=== PATIENT | female | born 1945 | race Caucasian/White ===

== ENCOUNTER 2016-12-05 15:58 | Observation (INO) | payer MEDICARE ==
[~2016-12-05] VITALS: Ht 165.1 cm; Wt 66.0 kg
[2016-12-05 17:57] LABS: BASO % 1 % (0-3); EOS % 1 % (0-3); HEMATOCRIT 41.5 % (36.0-47.0); LYMPH # 3.8 x10^3/uL (1.0-4.8); LYMPH % 44 % (24-48); MEAN CORPUSCULAR HEMOGLOBIN 30 pg (25-35); MEAN CORPUSCULAR HGB CONC 34 g/dL (31-37); MEAN CORPUSCULAR VOLUME 89 fL (79-100); MONO % 8 % (0-9); NEUT % 46 % (31-73); PLATELET COUNT 250 x10^3/uL (140-400); RED BLOOD COUNT 4.68 x10^6/uL (3.50-5.40); RED CELL DISTRIBUTION WIDTH 14.5 % (11.5-14.5); WHITE BLOOD COUNT 8.6 x10^3/uL (4.0-11.0)
[2016-12-05 18:15] LABS: CALCIUM 9.4 mg/dL (8.5-10.1); CREATININE 0.9 mg/dL (0.6-1.0); GFR 62.1; POTASSIUM 3.9 mmol/L (3.5-5.1)
[2016-12-05 18:21] LABS: ALBUMIN 4.1 g/dL (3.4-5.0); ALBUMIN/GLOBULIN RATIO 1.1 (1.0-1.7); TOTAL BILIRUBIN 0.3 mg/dL (0.2-1.0); TOTAL PROTEIN 7.7 g/dL (6.4-8.2)
[2016-12-05] MEDS ORDERED: ASPIRIN 81 MG TAB.CHEW PO ONE ×2 (18:30→19:45)
[2016-12-05] MEDS ORDERED: ONDANSETRON PF 4 MG/2 ML VIAL. IV PRN (19:15)
[2016-12-05] MEDS ORDERED: NITROGLYCERIN SUBLINGUAL 0.4 MG BOTTLE OF 25. SL PRN (19:15)
[2016-12-05] MEDS ORDERED: MORPHINE SULFATE 4 MG/ML DISP.SYRIN. IV PRN (19:15)
--- NOTE | 2016-12-05 19:47 | PHYS DOC ---
Past Medical History Past Medical History: Depression, High Cholesterol, Hypertension, Hyperthyroid Past Surgical History: No Surgical History Alcohol Use: Rarely Drug Use: None Adult General Chief Complaint Chief Complaint: CHEST PAIN HPI HPI 70-year-old female with a history of hypertension but no history of coronary disease presents with about a 6 hour history of waxing and waning left-sided chest tightness. She also states she had some shortness of breath and a little bit of nausea. She states currently the pain is minimal. She denies any fever chills or sweats. She denies cough congestion or hemoptysis. She denies any unilateral lower extremity swelling. She denies any trauma to her chest. [] Review of Systems Review of Systems Constitutional: Denies fever or chills [] Eyes: Denies change in visual acuity, redness, or eye pain [] HENT: Denies nasal congestion or sore throat [] Respiratory: Denies cough or shortness of breath [] Cardiovascular: No additional information not addressed in HPI [] GI: Denies abdominal pain, nausea, vomiting, bloody stools or diarrhea [] : Denies dysuria or hematuria [] Musculoskeletal: Denies back pain or joint pain [] Integument: Denies rash or skin lesions [] Neurologic: Denies headache, focal weakness or sensory changes [] Endocrine: Denies polyuria or polydipsia [] Current Medications Current Medications Current Medications Medications (Trade) Dose Ordered Sig/[facility] Start Time Stop Time Status Last Admin Dose Admin Aspirin (Children'S Aspirin) 324 mg 1X ONCE 12/05/16 19:45 12/05/16 19:46 Morphine Sulfate 4 mg PRN Q2HR PRN 12/05/16 19:15 12/06/16 19:14 Nitroglycerin (Nitrostat) 0.4 mg PRN Q5MIN PRN 12/05/16 19:15 12/06/16 19:14 Ondansetron HCl (Zofran) 4 mg PRN Q8HRS PRN 12/05/16 19:15 12/06/16 19:14 Allergies Allergies Allergies Coded Allergies Type Severity Reaction Last Updated Verified Penicillins Allergy Intermediate Rash 12/05/16 Yes Physical Exam Physical Exam Constitutional: Well developed, well nourished, no acute distress, non-toxic appearance. [] HENT: Normocephalic, atraumatic, bilateral external ears normal, oropharynx moist, no oral exudates, nose normal. [] Eyes: PERRLA, EOMI, conjunctiva normal, no discharge. [] Neck: Normal range of motion, no tenderness, supple, no stridor. [] Cardiovascular:Heart rate regular rhythm, no murmur [] Lungs & Thorax: Bilateral breath sounds clear to auscultation [] Abdomen: Bowel sounds normal, soft, no tenderness, no masses, no pulsatile masses. [] Skin: Warm, dry, no erythema, no rash. [] Back: No tenderness, no CVA tenderness. [] Extremities: No tenderness, no cyanosis, no clubbing, ROM intact, no edema. [] Neurologic: Alert and oriented X 3, normal motor function, normal sensory function, no focal deficits noted. [] Psychologic: Affect normal, judgement normal, mood normal. [] Current Patient Data Vital Signs Vital Signs Date Time Temp Pulse Resp B/P Pulse Ox O2 Delivery O2 Flow Rate FiO2 12/05/16 16:10 98.2 77 16 204/87 96 Room Air 98.2 Lab Values Laboratory Tests Test 12/05/16 16:15 White Blood Count 8.6x10^3/uL (4.0-11.0) Red Blood Count 4.68x10^6/uL (3.50-5.40) Hemoglobin 14.0g/dL (12.0-15.5) Hematocrit 41.5% (36.0-47.0) Mean Corpuscular Volume 89fL (79-100) Mean Corpuscular Hemoglobin 30pg (25-35) Mean Corpuscular Hemoglobin Concent 34g/dL (31-37) Red Cell Distribution Width 14.5% (11.5-14.5) Platelet Count 250x10^3/uL (140-400) Neutrophils (%) (Auto) 46% (31-73) Lymphocytes (%) (Auto) 44% (24-48) Monocytes (%) (Auto) 8% (0-9) Eosinophils (%) (Auto) 1% (0-3) Basophils (%) (Auto) 1% (0-3) Neutrophils # (Auto) 4.0x10^3uL (1.8-7.7) Lymphocytes # (Auto) 3.8x10^3/uL (1.0-4.8) Monocytes # (Auto) 0.6x10^3/uL (0.0-1.1) Eosinophils # (Auto) 0.1x10^3/uL (0.0-0.7) Basophils # (Auto) 0.0x10^3/uL (0.0-0.2) Sodium Level 144mmol/L (136-145) Potassium Level 3.9mmol/L (3.5-5.1) Chloride Level 103mmol/L (98-107) Carbon Dioxide Level 30mmol/L (21-32) Anion Gap 11 (6-14) Blood Urea Nitrogen 16mg/dL (7-20) Creatinine 0.9mg/dL (0.6-1.0) Estimated GFR (Cockcroft-Gault) 62.1 BUN/Creatinine Ratio 18 (6-20) Glucose Level 88mg/dL (70-99) Calcium Level 9.4mg/dL (8.5-10.1) Total Bilirubin 0.3mg/dL (0.2-1.0) Aspartate Amino Transferase (AST) 24U/L (15-37) Alanine Aminotransferase (ALT) 27U/L (14-59) Alkaline Phosphatase 50U/L (46-116) Troponin I Quantitative < 0.017ng/mL (0.000-0.055) UA-Ehq-Y-Type Natriuretic Peptide 99pg/mL (0-124) Total Protein 7.7g/dL (6.4-8.2) Albumin 4.1g/dL (3.4-5.0) Albumin/Globulin Ratio 1.1 (1.0-1.7) Laboratory Tests 12/05/16 16:15 Laboratory Tests 12/05/16 16:15 EKG EKG [EKG: Normal sinus rhythm incomplete right bundle-branch block no obvious ischemic ST-T changes] Radiology/Procedures Radiology/Procedures [] Impressions: Chest x-ray: Negative exam as interpreted by me Course & Med Decision Making Course & Med Decision Making Pertinent Labs and Imaging studies reviewed. (See chart for details) [ED course: Evaluation reveals 70-year-old female with concerning chest pain type symptoms. Initial workup was unremarkable including negative troponin chest x-ray and EKG. Patient's symptoms were concerning enough that I felt she would best be monitored as inpatient. I spoke with Dr. White who agreed to accept patient for admission.] Dragon Disclaimer Dragon Disclaimer This electronic medical record was generated, in whole or in part, using a voice recognition dictation system. Departure Departure Impression: Primary Impression: Chest pain Disposition: 09 ADMITTED INPATIENT Admitting Physician: London White Condition: STABLE Referrals: CHUCK COYLE MD (PCP) Problem Qualifiers Primary Impression: Chest pain Chest pain type: unspecified Qualified Code: R07.9 - Chest pain, unspecified BEVERLEY SAUL DO Dec 05, 2016 19:47
[2016-12-05 21:00] VITALS: BP 159/93
[2016-12-05 23:00] VITALS: BP 151/83
[2016-12-05] MEDS ORDERED: OMEP40CA5 PO (23:02)
[2016-12-05] MEDS ORDERED: LACT1CAP29 PO (23:05)
[2016-12-05] MEDS ORDERED: CALC600T4 PO (23:05)
[2016-12-05] MEDS ORDERED: LOSA25TA4 PO (23:05)
[2016-12-05] MEDS ORDERED: FLAX1CAP7 PO (23:05)
--- NOTE | 2016-12-06 02:10 | ACF ---
Admission Forms Criteria CHEST PAIN Clinical Indications for Admission to Inpatient Care (Place 'X' for any and all applicable criteria): Admission is indicated for chest pain and ANY ONE of the following(1)(2)(3)(4)(5 ): [ ]I. Angina with acute coronary syndrome (Also use Myocardial Infarction or Angina guideline) [ ]II. Hemodynamic instability [ ]III. Angina needing acute intervention as indicated by ALL of the following( 11)(12): [ ]a) Unstable angina is present as indicated by angina that is ANY ONE of the following: [ ]i) New onset [ ]ii) Nocturnal [ ]iii) Prolonged at rest [ ]iv) Progressive [ ]b) Angina warrants acute intervention as indicated by ANY ONE of the following: [ ]i) Recurrent angina (e.g, not responding as previously to treatment) [ ]ii) Angina at rest or with low-level activities despite initial medical therapy [ ]iii) New or presumably new ST-segment depression on ECG [ ]iv) Signs or symptoms of heart failure (eg, dyspnea, pulmonary edema) [ ]v) New or worsening mitral regurgitation [ ]vi) Hemodynamic instability [ ]vii) Dangerous arrhythmia (eg, sustained ventricular tachycardia) [ ]viii) History of percutaneous coronary intervention within 6 months [ ]ix) History of coronary artery bypass graft surgery [ ]x) JENNIFER risk score of 2 or greater[A] [ ]xi) History of Diabetes(14) [ ]xii) High-risk cardiac ischemia findings on noninvasive testing (e.g, echocardiogram, treadmill testing, nuclear scan) [ ]xiii) Chronic renal insufficiency (ie, estimated GFR less than 60 mL/min/1.732m) [ ]xiv) Left ventricular ejection fraction less than 40% [ ]IV. Evidence of CO (eg, cardiac biomarkers positive, ST-segment elevation on ECG) also use Myocardial Infarction Criteria Form. [ ]V. Pulmonary edema [ ]. Respiratory distress [ ]VII. Chest pain indicative of serious diagnosis other than coronary artery disease (eg, aortic dissection) [ ]VIII. Contraindications and/or Inappropriate clinical situations for Observational Care in patients with Chest Pain, when ANY ONE of the following is required: [ ]a) Patient with risk factor for pulmonary embolism, acute coronary syndrome and myocardial infarction (18) [ ]b) Patient with Pulmonary embolism require an average LOS of 4.3 days, therefore emergency department observation management is inappropriate 18,23 [ ]c) Painful condition/s in the elderly, have the highest rate of recidivism after emergency department observation management (10.8%) 20,21,22 [ ]d) Elevated cardiac biomarker requires intensive and exhaustive care (19) [X]IX. General contraindications and/or Inappropriate clinical situations for Observational Care in patients with Chest Pain, when ANY ONE of the following is required: [X]a) Prediction of prolongation of LOS based on ANY ONE of the following may be considered as a contraindication for observational care 2, 3, 4, 5, 6, 7, 8, 9, 10, 11 [X]i) Age > 65 yrs. [ ]ii) Patient arriving by ambulance [ ]iii) Patient with high acuity [ ]iv) Patient requiring vital sign monitoring [ ]v) Patient on IV medication [X]b) Systolic blood pressures 180mmHg 3,12 [ ]c) Patient with altered mental status including delirium and other alteration of consciousness, (3) [ ]d) Patient whose discharge disposition will be to a half-way home or rehabilitation home should not be managed in Emergency Department Observation Unit. CMS rule requires 3 days hospital stay before such placement. 3,13 [ ]e) Patient with failure to thrive due to broad array of etiologies 3,16,17 [ ]f) Inability to ambulate 3,14 Extended stay beyond goal length of stay may be needed for (1)(28): [ ]a) Specific condition diagnosed after evaluation (eg, pulmonary embolism, aortic dissection) [ ]b) Unstable angina [ ]c) Continued suspicion of acute coronary syndrome with inability to complete needed cardiac evaluation (eg, patient clinically unable to undergo stress testing) [ ]d) Myocardial infarction (Contents from ANGINA and CHEST PAIN clinical indications for admission to inpatient care have been integrated in this form) The original [facility] content created by [employer] has been revised. The portions of the content which have been revised are identified through the use of italic text or in bold, and [facility] has neither reviewed nor approved the modified material. All other unmodified content is copyright [facility]. Please see references footnoted in the original [facility] [employer] edition 2016 Admission Criteria Met?: Yes BK COX Dec 06, 2016 02:10
[2016-12-06 03:00] VITALS: BP 129/64
--- NOTE | 2016-12-06 06:09 | EKG ---
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
[2016-12-06 07:00] VITALS: BP 130/62
--- NOTE | 2016-12-06 08:56 | RAD ---
Portable chest, 12/05/2016: History: Chest pain The heart size and pulmonary vascularity are normal. There is mild tortuosity of the thoracic aorta. No pulmonary infiltrates are seen. There is no evidence of pleural fluid. IMPRESSION: No acute cardiopulmonary abnormality is detected.
--- NOTE | 2016-12-06 10:19 | PDOC2 ---
CARDIAC CONSULT DATE OF CONSULT Date of Consult DATE: 12/06/16 TIME: 10:07 REASON FOR CONSULT Reason for Consult: Chest pain REFERRING PHYSICIAN Referring Physician: Cathy SOURCE Source: Chart review, Patient HISTORY OF PRESENT ILLNESS HISTORY OF PRESENT ILLNESS This is a pleasant 70 yo female admitted for complains of chest pain. Reports that yesterday about 1030 she started having nonradiating left chest pressure which stayed constant throughout the day 5-6 in 0-10 pain scale. There has been no associated symptoms of nausea, PALACIOS, SOA, palpitations, dizziness, or decrease in activity tolerance. She did however has done significant modification in her routine medications due main complain of cough which actually was relieved 2-3 months after removing thyroid replacement pill, statin and ASA. Denies any recent injury, falls, VTE, CAD, excessive lifting or overhead reaching, neck or shoulder discomfort. She is significant for GERD but has been taking PPI for a while and has not been complaining of any significant heartburn except for her previous cough which was nonproductive. PAST MEDICAL HISTORY Cardiovascular: HTN, Hyperlipidemia Pulmonary: No pertinent hx CENTRAL NERVOUS SYSTEM: Other (No pertinent history) GI: GERD Heme/Onc: No pertinent hx Hepatobiliary: No pertinent hx Psych: No pertinent hx Musculoskeletal: Osteoarthritis Rheumatologic: No pertinent hx Infectious disease: No pertinent hx ENT: Sincusitis, Allergic Rhinitis Renal/: No pertinent hx Endocrine: Hypothyroidism, Osteoporosis Dermatology: No pertinent hx PAST SURGICAL HISTORY Past Surgical History: Hysterectomy, Other (bladder sling; sinus surgery in 2012) FAMILY HISTORY Family History: Coronary Artery Disease (father) SOCIAL HISTORY Smoke: No (quit remotely) ALCOHOL: occassional Drugs: None Lives: Alone CURRENT MEDICATIONS CURRENT MEDICATIONS Current Medications Medications (Trade) Dose Ordered Sig/Robin Route PRN Reason Start Time Stop Time Status Last Admin Dose Admin Aspirin (Children'S Aspirin) 324 mg 1X ONCE PO 12/05/16 18:30 12/05/16 18:31 DC 12/05/16 18:42 ALLERGIES ALLERGIES: Coded Allergies: Penicillins (Verified Allergy, Intermediate, Rash, 12/05/16) ROS Review of System 14 point ROS evaluated with pertinent positives noted per HPI PHYSICAL EXAM General: Alert, Oriented X3, Cooperative, No acute distress HEENT: Atraumatic, Mucous membr. moist/pink Lungs: Clear to auscultation, Normal air movement Heart: Regular rate, Normal S1, Normal S2, Other (2/6 systolic murmur to LLS border) Abdomen: Soft, No tenderness Extremities: No cyanosis, No edema Skin: No breakdown, No significant lesion Neuro: Normal speech, Sensation intact Psych/Mental Status: Mental status NL, Mood NL MUSCULOSKELETAL: Osteoarthritic changes both hands VITALS VITALS Vital Signs Date Time Temp Pulse Resp B/P Pulse Ox O2 Delivery O2 Flow Rate FiO2 12/06/16 08:00 Room Air 12/06/16 07:00 97.7 57 18 130/62 96 97.7 LABS Lab: Laboratory Tests Test 12/05/16 16:15 12/06/16 00:35 12/06/16 07:00 White Blood Count 8.6x10^3/uL (4.0-11.0) Red Blood Count 4.68x10^6/uL (3.50-5.40) Hemoglobin 14.0g/dL (12.0-15.5) Hematocrit 41.5% (36.0-47.0) Mean Corpuscular Volume 89fL (79-100) Mean Corpuscular Hemoglobin 30pg (25-35) Mean Corpuscular Hemoglobin Concent 34g/dL (31-37) Red Cell Distribution Width 14.5% (11.5-14.5) Platelet Count 250x10^3/uL (140-400) Neutrophils (%) (Auto) 46% (31-73) Lymphocytes (%) (Auto) 44% (24-48) Monocytes (%) (Auto) 8% (0-9) Eosinophils (%) (Auto) 1% (0-3) Basophils (%) (Auto) 1% (0-3) Neutrophils # (Auto) 4.0x10^3uL (1.8-7.7) Lymphocytes # (Auto) 3.8x10^3/uL (1.0-4.8) Monocytes # (Auto) 0.6x10^3/uL (0.0-1.1) Eosinophils # (Auto) 0.1x10^3/uL (0.0-0.7) Basophils # (Auto) 0.0x10^3/uL (0.0-0.2) Sodium Level 144mmol/L (136-145) Potassium Level 3.9mmol/L (3.5-5.1) Chloride Level 103mmol/L (98-107) Carbon Dioxide Level 30mmol/L (21-32) Anion Gap 11 (6-14) Blood Urea Nitrogen 16mg/dL (7-20) Creatinine 0.9mg/dL (0.6-1.0) Estimated GFR (Cockcroft-Gault) 62.1 BUN/Creatinine Ratio 18 (6-20) Glucose Level 88mg/dL (70-99) Calcium Level 9.4mg/dL (8.5-10.1) Total Bilirubin 0.3mg/dL (0.2-1.0) Aspartate Amino Transf (AST/SGOT) 24U/L (15-37) Alanine Aminotransferase (ALT/SGPT) 27U/L (14-59) Alkaline Phosphatase 50U/L (46-116) Troponin I Quantitative < 0.017ng/mL (0.000-0.055) < 0.017ng/mL (0.000-0.055) < 0.017ng/mL (0.000-0.055) DW-Sex-F-Type Natriuretic Peptide 99pg/mL (0-124) Total Protein 7.7g/dL (6.4-8.2) Albumin 4.1g/dL (3.4-5.0) Albumin/Globulin Ratio 1.1 (1.0-1.7) ASSESSMENT/PLAN ASSESSMENT/PLAN 1. Chest pain: sustained left chest pressure with significant cardiac risk factors 2. HLP: stopped statin 2-3 months ago due to cough 3. HTN: controlled, takes home losartan 4. Hypothyroidism: stopped replacement 2-3 months ago due to cough as well as stopped ASA 5. Hx of sinus surgery/GERD Recommendations 1. TTE, MPI today 2. TSH, lipid panel. 3. Would recommend starting ECASA 81 mg for primary prevention and monitor for cough reproduction. 4. Continue with PPI 5. Continue with home losartan Problems: LAKESHIA DUBON APRN Dec 06, 2016 10:19
[2016-12-06 10:23] LABS: CHOLESTEROL/HDL RATIO 4.1
[2016-12-06 11:00] VITALS: BP 146/64
[2016-12-06] MEDS ORDERED: LOSARTAN POTASSIUM 25 MG TABLET. PO SCH (11:00)
[2016-12-06] MEDS ORDERED: REGADENOSON 0.4 MG/5 ML DISP.SYRIN. IV ONE (11:00)
[2016-12-06] MEDS ORDERED: PANTOPRAZOLE 40 MG TABLET. PO SCH (11:00)
[2016-12-06] MEDS ORDERED: ASPIRIN ENTERIC COATED 81 MG TABLET.DR. PO SCH (11:00)
[2016-12-06] MEDS ORDERED: ACETAMINOPHEN 325 MG TABLET. PO PRN (12:15)
[2016-12-06] MEDS ORDERED: hydrALAZINE 20 MG/ML VIAL. IVP PRN (12:15)
[2016-12-06] MEDS ORDERED: ALBUTEROL SULFATE 2.5 MG/3 ML NEBU. NEB PRN ×2 (12:15→16:15)
[2016-12-06] MEDS ORDERED: HYDROCODONE/APAP 5/325MG TABLET. PO PRN (12:15)
[2016-12-06] MEDS ORDERED: ONDANSETRON PF 4 MG/2 ML VIAL. IV PRN (12:15)
[2016-12-06] MEDS ORDERED: LACTOBACILLUS ACIDOPH & BULGAR 1 TABLET. PO SCH (13:00)
[2016-12-06] MEDS ORDERED: CALCIUM CARBONATE 500 MG TABLET PO SCH (13:00)
--- NOTE | 2016-12-06 14:43 | RAD ---
APPROVED REPORT Test Type: Pharmacological Stress Nurse/Tech: ALEXANDRIA Salas RN Test Indications: Chest pain Cardiac History: HTN, high cholesterol see EHR Medications: see EHR Medical History: see EHR Resting ECG: SR Resting Heart Rate: 71 bpm Resting Blood Pressure: 151/82mmHg Pretest Chest Pain: Atypical angina Nurse/Tech Notes Reports resting mid back pain. Lungs CTA, heart tones WNL Consent: The procedure was explained to the patient in lay terms. Informed consent was witnessed. Edgar eout was entered into [employer] History and Stress Test performed by RT Avinash (R) (N) Pharm. Details Pharmacologic stress testing was performed using 0.4mg per 5ml of regadenoson given intravenously ove r 7-10 seconds. Stress Symptoms Dyspnea, no change in back pain POST EXERCISE Reason for Termination: Infusion complete Max Blood Pressure: 167/77mmHg Chest Pain: Yes. Arrhythmia: No. INTERPRETATION Stress EKG Conclusion: The resting EKG shows a sinus rhythm with inferior and lateral ST depression. Stress EKG shows mild further depression in the abnormal leads. Baseline abnormal EKG with further mild changes with exertion that are suggestive but not diagnostic of ischemia. Imaging Protocol IMAGE PROTOCOL: Rest Tc-99m/stress Tc-99m 1 day Rest: Stress: Viability: Radiopharm.Tc99m [id number] Sestamibi Dose10.5mCi 33.5mCi Duration 15min. 10min. Img Date 12/06/2016 12/06/2016 Inj-Img [id number]. 60min. Rest Admin Site:IV - Right AntecubitalAdministrator:RT Avinash (R)(N) Stress Admin Site: IV - Right AntecubitalAdministrator: RT Katja (R)(N) STRESS DATA End Diast. Vol.64.0mlAv. Heart Rate66.0bpm End Syst. Vol.16.0mlCO Index BSA0.0L/min Myocardial Tbfz291.0gEject. Jqisaoms39.0% Stress Rates Pk. Fill Rate3.06EDV/secLVtime Pk. Fill 273.77msec Pk. Empty Rate4.59ESV/secLVtime Pk. Fnlkd547.45msec 1/3 Pk. Fill1.12EDV/sec Stress Scores Regional WT0.00Summed WT2.00 Regional WM0.00Summed WM1.00 LV Perfusion The stress scans showed no significant defects. The rest scans showed no significant defects. Nuclear imaging shows no reversible ischemia or infarct. Wall Motion Normal left ventricular systolic function with an ejection fraction of greater than 70%. LV Perf. Quant 17 Seg. SSS0.00 17 Seg. SRS0.00 17 Seg. SDS0.00 Stress Defect Extent (% LAD)0.00Rest Defect Extent (% LAD)0.00Rev. Defect Extent (% LAD)0.00 Stress Defect Extent (% LCX) 0.00Rest Defect Extent (% LCX)0.00Rev. Defect Extent (% LCX)0.00 Stress Defect Extent (% RCA)0.00Rest Defect Extent (% RCA)0.00Rev. Defect Extent (% RCA)0.00 Stress Defect Extent (% LILA)0.00Rest Defect Extent (% LILA)0.00Rev. Defect Extent (% LILA)0.00 Conclusion 1. Abnormal baseline EKG with further mild changes with exertion that are suggestive but not diagnost ic of ischemia. 2. Nuclear imaging shows no reversible ischemia or infarct. 3. Normal left ventricular systolic function with an ejection fraction of greater than 70%. 4. Low to moderately low risk Lexiscan nuclear stress test.
--- NOTE | 2016-12-06 14:46 | PDOC1 ---
History and Physical Past Medical History Cardiovascular: HTN, Hyperlipidemia Pulmonary: No pertinent hx CENTRAL NERVOUS SYSTEM: Other (No pertinent history) GI: GERD Heme/Onc: No pertinent hx Hepatobiliary: No pertinent hx Psych: No pertinent hx Rheumatologic: No pertinent hx Infectious disease: No pertinent hx ENT: Sincusitis, Allergic Rhinitis Renal/: No pertinent hx Endocrine: Hypothyroidism, Osteoporosis Dermatology: No pertinent hx Past Surgical History Past Surgical History: Hysterectomy, Other (bladder sling; sinus surgery in 2012) Family History Family History: Coronary Artery Disease (father) Social History Smoke: No (quit remotely) ALCOHOL: occassional Drugs: None Current Problem List Problem List Problems Medical Problems: (1) Chest pain Status: Acute Current Medications Current Medications Current Medications Medications (Trade) Dose Ordered Sig/Robin Start Time Stop Time Status Last Admin Dose Admin Acetaminophen (Tylenol) 325 mg PRN Q6HRS PRN 12/06/16 12:15 Acetaminophen/ Hydrocodone Bitart (Lortab 5/325) 1 tab PRN Q6HRS PRN 12/06/16 12:15 Albuterol Sulfate (Ventolin Neb Soln) 2.5 mg PRN Q4HRS PRN 12/06/16 12:15 Aspirin (Children'S Aspirin) 324 mg 1X ONCE 12/05/16 19:45 12/05/16 19:46 DC Aspirin (Ecotrin) 81 mg DAILYWBKFT 12/06/16 11:00 12/06/16 11:44 81 MG Atorvastatin Calcium (Lipitor) 20 mg QHS 12/06/16 21:00 Calcium Carbonate/ Glycine (Oscal) 500 mg BID 12/06/16 13:00 Hydralazine HCl (Apresoline) 10 mg PRN Q4HRS PRN 12/06/16 12:15 Lactobacillus Acidophilus (Bacid, Stephanie-Bid) 1 tab DAILY 12/06/16 13:00 Losartan Potassium (Cozaar) 25 mg DAILY 12/06/16 11:00 12/06/16 11:44 25 MG Morphine Sulfate 4 mg PRN Q2HR PRN 12/05/16 19:15 12/06/16 19:14 Nitroglycerin (Nitrostat) 0.4 mg PRN Q5MIN PRN 12/05/16 19:15 12/06/16 19:14 Non-Formulary Medication 1 each HS 12/06/16 21:00 UNV Ondansetron HCl (Zofran) 4 mg PRN Q8HRS PRN 12/06/16 12:15 Pantoprazole Sodium (Protonix) 40 mg DAILYAC 12/06/16 11:00 12/06/16 11:43 40 MG Regadenoson (Lexiscan) 0.4 mg 1X ONCE 12/06/16 11:00 12/06/16 11:01 DC 12/06/16 11:00 0.4 MG Allergies Allergies Allergies Coded Allergies Type Severity Reaction Last Updated Verified Penicillins Allergy Intermediate Rash 12/05/16 Yes ROS Review of System CONSTITUTIONAL: No fever or chills EYES: No recent changes SKIN: No rash or itching CARDIOVASCULAR: chest pain, no syncope, palpitations, or edema RESPIRATORY: No SOB or cough GASTROINTESTINAL: No nausea, vomiting or abdominal pain NEUROLOGICAL: No headaches or weakness ENDOCRINE: No cold or heat intolerance GENITOURINARY: No urgency or frequency of urination MUSCULOSKELETAL: No back pain or joint pain LYMPHATICS: No enlarged lymph nodes PSYCHIATRIC: No anxiety or depression Physical Exam Physical Exam GEN.: No apparent distress. Alert and oriented. HEENT: Head is normocephalic, atraumatic NECK: Supple. no jvd LUNGS: Clear to auscultation. normal airflow HEART: RRR, S1, S2 present. Peripheral pulses intact in all extremites. ABDOMEN: Soft, nontender. Positive bowel sounds. EXTREMITIES: Without any cyanosis. NEUROLOGIC: Normal speech, normal tone PSYCHIATRIC: Normal affect, normal mood. SKIN: No ulcerations Vitals Vitals Vital Signs Date Time Temp Pulse Resp B/P Pulse Ox O2 Delivery O2 Flow Rate FiO2 12/06/16 11:44 61 146/64 12/06/16 11:00 97.9 18 97 Room Air 97.9 Labs Labs Laboratory Tests Test 12/05/16 16:15 12/06/16 00:35 12/06/16 07:00 White Blood Count 8.6x10^3/uL (4.0-11.0) Red Blood Count 4.68x10^6/uL (3.50-5.40) Hemoglobin 14.0g/dL (12.0-15.5) Hematocrit 41.5% (36.0-47.0) Mean Corpuscular Volume 89fL (79-100) Mean Corpuscular Hemoglobin 30pg (25-35) Mean Corpuscular Hemoglobin Concent 34g/dL (31-37) Red Cell Distribution Width 14.5% (11.5-14.5) Platelet Count 250x10^3/uL (140-400) Neutrophils (%) (Auto) 46% (31-73) Lymphocytes (%) (Auto) 44% (24-48) Monocytes (%) (Auto) 8% (0-9) Eosinophils (%) (Auto) 1% (0-3) Basophils (%) (Auto) 1% (0-3) Neutrophils # (Auto) 4.0x10^3uL (1.8-7.7) Lymphocytes # (Auto) 3.8x10^3/uL (1.0-4.8) Monocytes # (Auto) 0.6x10^3/uL (0.0-1.1) Eosinophils # (Auto) 0.1x10^3/uL (0.0-0.7) Basophils # (Auto) 0.0x10^3/uL (0.0-0.2) Sodium Level 144mmol/L (136-145) Potassium Level 3.9mmol/L (3.5-5.1) Chloride Level 103mmol/L (98-107) Carbon Dioxide Level 30mmol/L (21-32) Anion Gap 11 (6-14) Blood Urea Nitrogen 16mg/dL (7-20) Creatinine 0.9mg/dL (0.6-1.0) Estimated GFR (Cockcroft-Gault) 62.1 BUN/Creatinine Ratio 18 (6-20) Glucose Level 88mg/dL (70-99) Calcium Level 9.4mg/dL (8.5-10.1) Total Bilirubin 0.3mg/dL (0.2-1.0) Aspartate Amino Transf (AST/SGOT) 24U/L (15-37) Alanine Aminotransferase (ALT/SGPT) 27U/L (14-59) Alkaline Phosphatase 50U/L (46-116) Troponin I Quantitative < 0.017ng/mL (0.000-0.055) < 0.017ng/mL (0.000-0.055) < 0.017ng/mL (0.000-0.055) VC-Bnl-W-Type Natriuretic Peptide 99pg/mL (0-124) Total Protein 7.7g/dL (6.4-8.2) Albumin 4.1g/dL (3.4-5.0) Albumin/Globulin Ratio 1.1 (1.0-1.7) Triglycerides Level 100mg/dL (0-150) Cholesterol Level 211mg/dL (0-200) LDL Cholesterol, Calculated 139mg/dL (0-100) VLDL Cholesterol, Calculated 20mg/dL (0-40) HDL Cholesterol 52mg/dL (40-60) Cholesterol/HDL Ratio 4.1 Thyroid Stimulating Hormone (TSH) 6.581uIU/mL (0.358-3.74) Laboratory Tests Test 12/05/16 16:15 12/06/16 00:35 12/06/16 07:00 White Blood Count 8.6x10^3/uL (4.0-11.0) Red Blood Count 4.68x10^6/uL (3.50-5.40) Hemoglobin 14.0g/dL (12.0-15.5) Hematocrit 41.5% (36.0-47.0) Mean Corpuscular Volume 89fL (79-100) Mean Corpuscular Hemoglobin 30pg (25-35) Mean Corpuscular Hemoglobin Concent 34g/dL (31-37) Red Cell Distribution Width 14.5% (11.5-14.5) Platelet Count 250x10^3/uL (140-400) Neutrophils (%) (Auto) 46% (31-73) Lymphocytes (%) (Auto) 44% (24-48) Monocytes (%) (Auto) 8% (0-9) Eosinophils (%) (Auto) 1% (0-3) Basophils (%) (Auto) 1% (0-3) Neutrophils # (Auto) 4.0x10^3uL (1.8-7.7) Lymphocytes # (Auto) 3.8x10^3/uL (1.0-4.8) Monocytes # (Auto) 0.6x10^3/uL (0.0-1.1) Eosinophils # (Auto) 0.1x10^3/uL (0.0-0.7) Basophils # (Auto) 0.0x10^3/uL (0.0-0.2) Sodium Level 144mmol/L (136-145) Potassium Level 3.9mmol/L (3.5-5.1) Chloride Level 103mmol/L (98-107) Carbon Dioxide Level 30mmol/L (21-32) Anion Gap 11 (6-14) Blood Urea Nitrogen 16mg/dL (7-20) Creatinine 0.9mg/dL (0.6-1.0) Estimated GFR (Cockcroft-Gault) 62.1 BUN/Creatinine Ratio 18 (6-20) Glucose Level 88mg/dL (70-99) Calcium Level 9.4mg/dL (8.5-10.1) Total Bilirubin 0.3mg/dL (0.2-1.0) Aspartate Amino Transf (AST/SGOT) 24U/L (15-37) Alanine Aminotransferase (ALT/SGPT) 27U/L (14-59) Alkaline Phosphatase 50U/L (46-116) Troponin I Quantitative < 0.017ng/mL (0.000-0.055) < 0.017ng/mL (0.000-0.055) < 0.017ng/mL (0.000-0.055) WN-Lum-V-Type Natriuretic Peptide 99pg/mL (0-124) Total Protein 7.7g/dL (6.4-8.2) Albumin 4.1g/dL (3.4-5.0) Albumin/Globulin Ratio 1.1 (1.0-1.7) Triglycerides Level 100mg/dL (0-150) Cholesterol Level 211mg/dL (0-200) LDL Cholesterol, Calculated 139mg/dL (0-100) VLDL Cholesterol, Calculated 20mg/dL (0-40) HDL Cholesterol 52mg/dL (40-60) Cholesterol/HDL Ratio 4.1 Thyroid Stimulating Hormone (TSH) 6.581uIU/mL (0.358-3.74) VTE Prophylaxis Ordered VTE Prophylaxis Devices: Yes VTE Pharmacological Prophylaxi: No JOANNE DELCID MD Dec 06, 2016 14:46
[2016-12-06 15:00] VITALS: BP 130/65
[2016-12-06] MEDS ORDERED: IOHEXOL 350 MG/ML 100ML VIAL. IV ONE (16:00)
[2016-12-06] MEDS ORDERED: CONTRAST GIVEN MC PRN (16:15)
[2016-12-06 16:42] VITALS: BP_SYST 126; BP_SYST 139; BP_DIAS 69; BP_DIAS 78
--- NOTE | 2016-12-06 16:45 | CARD ---
APPROVED REPORT EXAM: Two-dimensional and M-mode echocardiogram with Doppler and color Doppler. Other Information Quality : AverageHR: 74bpm Rhythm : NSR INDICATION Chest Pain 2D DIMENSIONS RVDd3.2 (2.9-3.5cm)Left Atrium(2D)2.4 (1.6-4.0cm) IVSd1.0 (0.7-1.1cm)Aortic Root(2D)2.8 (2.0-3.7cm) LVDd3.8 (3.9-5.9cm)LVOT Diameter2.0 (1.8-2.4cm) PWd0.9 (0.7-1.1cm)LVDs2.6 (2.5-4.0cm) FS (%) 31.7 %SV36.5 ml LVEF(%)60.4 (>50%) Aortic Valve AoV Peak Rubin.123.0cm/sAoV VTI22.8cm AO Peak GR.6.1mmHgLVOT Peak Rubin.114.0cm/s LVOT VTI 22.64cmAO Mean GR.3mmHg OFELIA (VMAX)2.69cq5OSL (VTI)3.11cm2 Mitral Valve MV E Skyoxric47.7cm/sMV DECEL ZHLA540ys MV A Fukhprue06.7cm/sMV E Mean Gr.1mmHg MV PJL24dsL/A Ratio0.9 MV A Vwfulmty715laFLE (PHT)2.62cm2 TDI E/Lateral E'3.8E/Medial E'7.4 Pulmonary Valve PV Peak Mkpmbolb61.6cm/sPV Peak Grad.2mmHg RVOT VTI11.2cm Tricuspid Valve TR P. Hyaxkscu635ea/sRAP USLPWYMR2wjCz TR Peak Gr.41ofJsGXER68tjOw Pulmonary Vein S1 Kfivowdl32.2cm/sD2 Csrydehh98.4cm/s PVa chonnsly413cwvw LEFT VENTRICLE The left ventricle is normal size. There is borderline concentric left ventricular hypertrophy. Left ventricle systolic function is normal. The Ejection Fraction is 55-60%. There is normal LV segmental wall motion. Transmitral Doppler flow pattern is Grade I-abnormal relaxation pattern. There is no bertha tricular septal defect visualized. RIGHT VENTRICLE The right ventricle is normal size. There is normal right ventricular wall thickness. The right ventr icular systolic function is normal. ATRIA The left atrium size is normal. The right atrium size is normal. The interatrial septum is intact wit h no evidence for an atrial septal defect or patent foramen ovale as noted on 2-D or Doppler imaging. AORTIC VALVE The aortic valve is normal in structure and function. Doppler and Color Flow revealed no significant aortic regurgitation. There is no significant aortic valvular stenosis. MITRAL VALVE The mitral valve leaflets are thickened. There is no evidence of mitral valve prolapse. There is no m itral valve stenosis. Doppler and Color Flow revealed mild mitral regurgitation. TRICUSPID VALVE The tricuspid valve is normal in structure. Doppler and Color Flow revealed mild tricuspid regurgitat ion. The PA pressure was estimated at 30 mmHg. There is no tricuspid valve stenosis. PULMONIC VALVE The pulmonic valve is not well visualized. Doppler and Color Flow revealed mild pulmonic valvular reg urgitation. There is no pulmonic valvular stenosis. GREAT VESSELS The aortic root is normal in size. The ascending aorta is normal in size. Normal pulmonary venous jose w (Doppler). The IVC is normal in size and collapses >50% with inspiration. PERICARDIAL EFFUSION There is no evidence of significant pericardial effusion. Critical Notification Critical Value: No <Conclusion> The left ventricle is normal size. Left ventricle systolic function is normal. The Ejection Fraction is 55-60%. There is borderline concentric left ventricular hypertrophy. There is no significant aortic valvular stenosis. Doppler and Color Flow revealed no significant aortic regurgitation. Doppler and Color Flow revealed mild mitral regurgitation. Doppler and Color Flow revealed mild tricuspid regurgitation. The PA pressure was estimated at 30 mmHg.
--- NOTE | 2016-12-06 17:08 | RAD ---
Indication severe chest pain radiating to the back. Onset yesterday. Imaging through the chest and abdomen was performed. Dissection protocol was utilized. No similar imaging is available. Approximately 75 cc of Omnipaque 300 was administered. MIP images were generated and reviewed. Volume rendered images were also generated and reviewed. On the initial noncontrast images some contrast is seen in the renal collecting systems compatible with a recent contrast exam. No abnormality is seen associated with the thoracic or abdominal aorta. No intramural hematoma is suggested. On the contrast study the thoracic aorta appears normal. There is no evidence of aneurysm acute finding or dissection. The abdominal aorta similarly appears unremarkable apart from minimal plaquing. An acute parenchymal infiltrate in either lung is not seen. There are some changes at the lung apices compatible with mild scarring. A dominant soft tissue mass is not seen. There is, however, a 8 mm pleural-based nodule in the left lower lobe, image 53 series 2 and a small 5 mm nodule in the right lower lobe image 107. There is no significant hilar or mediastinal adenopathy. The liver appears unremarkable. The spleen appears normal and gallbladder appears grossly normal. No pancreatic abnormality is seen. The adrenal glands and kidneys appear normal. There is perhaps some diffuse enhancement of the gastric mucosa. The finding is not certain and may be a function of arterial imaging and bolus technique. Gastric pathology is not entirely excluded and if clinically suspect endoscopy should be considered. IMPRESSION: Normal thoracic and abdominal aorta. Gastric pathology not entirely excluded. Clinical correlation as to this possibility advised. Relatively small pleural-based and parenchymal pulmonary nodules as outlined above. Follow-up imaging along the lines of the Fleischner criteria should be considered PQRS Compliance Statement: One or more of the following individualized dose reduction techniques were utilized for this examination: 1. Automated exposure control 2. Adjustment of the mA and/or kV according to patient size 3. Use of iterative reconstruction technique
[2016-12-06] MEDS ORDERED: ASPI81TA2 PO (18:30)
--- NOTE | 2016-12-06 19:56 | HP ---
ADMIT DATE: 12/06/2016 CHIEF COMPLAINT: Chest pain. HISTORY OF PRESENT ILLNESS: A 70-year-old female patient presented to the ER with complaints of chest pain located in the left side of his chest, described as a chest pressure present from 10:30 yesterday morning which lasted until last night. She denies any palpitations, today the pain is moving to her back; however, at this time is well controlled and denies any aggravating or relieving factors. She did not have a risk factor for PE and she has a history of GERD in the past. Currently, she is on Protonix. PAST MEDICAL HISTORY: Hypertension, hyperlipidemia, GERD, osteoporosis, hypothyroidism. PAST SURGICAL HISTORY: Hysterectomy, bladder sling surgery. FAMILY HISTORY: Coronary artery disease in father. SOCIAL HISTORY: No smoking, has smoking history, secondhand smoking. No alcohol, no drug abuse. ALLERGIES: PENICILLIN. REVIEW OF SYSTEMS AND PHYSICAL EXAM: Please see my electronic H and P. LABORATORY FINDINGS: BMP within normal range and troponins 3 sets normal range. Cholesterol total 211, LDL 139. Hematology: CBC is within normal range. IMAGING STUDIES: Chest x-ray: No acute process seen. Nuclear imaging shows no reversible ischemia or infarct, normal LV ejection fraction 75%, abnormal baseline EKG with mild changes with exertion. ASSESSMENT AND PLAN: 1. Chest pain, unclear etiology. Needs to rule out ACS. 2. Hyperlipidemia, hypertension, hypothyroidism. 3. Gastroesophageal reflux disease. PLAN: 1. She has been undergoing a stress test and echocardiogram today and Cardiology has been following. D-dimer is pending. 2. I will check vitals of both extremities. 3. I will order a CT of the chest to rule out any aortic dissection. 4. Family members at bedside. 5. Blood pressure currently controlled. The patient denies any symptoms of anxiety. JOANNE DELCID MD DR: SILVERIO/tristian JOB#: [id number] / [id number]
[2016-12-06] MEDS ORDERED: [UNRECOGNIZED DRUG - OTHER] PO SCH (21:00)
[2016-12-06] MEDS ORDERED: ATORVASTATIN CALCIUM 20 MG TABLET PO SCH (21:00)
[2016-12-06] MEDS ORDERED: FLAXSEED PO SCH (21:00)
[2016-12-06] MEDS ORDERED: BILBERRY PO SCH (21:00)
--- NOTE | 2016-12-07 09:41 | PDOC3 ---
Discharge Summary* Admitting Diagnosis Problems Medical Problems: (1) Chest pain Status: Acute Final Diagnosis 1. Chest pain, unclear etiology. ACS, PE, ruled out, possible due to Anxiety /htn 2. Hyperlipidemia, hypertension, hypothyroidism. 3. Gastroesophageal reflux disease. 4. Accelerated HTN POA Brief Hospital Course Ms. Yoder is a 70 old F who presented with chest pain, imagining studies and nuclear stress test negative for ischemia. CT chest positive for 8 mm nodule, d/ w pt on phone, needs follow up with Dr Parks to make sure its not malignant. Pt verbalized the understanding of his condition. Please see my HP for full details. Disposition/Orders: D/C to Home Diet: Cardiac Scheduled Aspirin (Aspirin) 1 TAB PO DAILY (Reported) Calcium Carbonate (Calcium) 600 MG PO BID (Reported) Flaxseed/Evening Prim/Bilberry (Retaine Flax Softgel) 1 EACH PO HS (Reported) Lactobacillus Combo No.10 (Probiotic) 1 EACH PO DAILY (Reported) Losartan Potassium (Losartan Potassium) 25 MG PO DAILY (Reported) Omeprazole (Omeprazole) 1 CAP PO DAILY (Reported) Time Spent Total time spent with patient 45 minutes for coordination of care, counseling, and education. JOANNE DELCID MD Dec 07, 2016 09:41
== END 2016-12-06 18:50 | disposition home or self-care (01) ==
LOC: ER 15:58 → 5 SOUTH 19:18
PROVIDERS: ADMIT Internal Medicine; ATTEND Internal Medicine
DX: R07.9 Chest pain, unspecified (principal); I10 Essential (primary) hypertension; E78.5 Hyperlipidemia, unspecified; K21.9 Gastro-esophageal reflux disease without esophagitis; E03.9 Hypothyroidism, unspecified; M81.0 Age-related osteoporosis without current pathological fracture
CPT/HCPCS: 36415; 71010; 71275; 74175; 78452; 80053; 80061; 83880; 84443; 84484; 85027; 85379; 93005; 93017; 93306; 94250; 94640; 94760; 99285; A9500; G0378; J2785; Q9967; 96374; 96375; 96376; G0379

== ENCOUNTER → 2016-12-11 | Outpatient (CLI) | payer MEDICARE ==
[2016-12-06 16:42] VITALS: BP 126/69
[~2016-12-11] MED LIST: ASPI81TA2 PO; CALC600T4 PO; FLAX1CAP7 PO; LACT1CAP29 PO; LOSA25TA4 PO; OMEP40CA5 PO
--- NOTE | 2016-12-11 08:49 | KCIC ---
EXAM: Bone densitometry. HISTORY: Postmenopausal female presents for osteoporosis screening. FINDINGS: BMD: (g/cm2) - AP Spine Total (L1-L4): 0.813 - Total left Hip: 0.659 T-Score: - AP Spine Total (L1-L4): -2.1 - Total left Hip: -2.3 Z-Score: - AP Spine Total (L1-L4): -0.0 - Total left Hip: -0.8 World Health Organization criteria for BMD interpretation classify patients as Normal (T-score at or above -1.0), Osteopenic (T-score between -1.0 and -2.5), or Osteoporotic (T-score at or below -2.5). IMPRESSION: Osteopenia. Electronically signed by: Bette Grey (Dec 11, 2016 08:48:02)
== END | disposition home or self-care (01) ==
LOC: KCIC DEXA 07:48
PROVIDERS: ATTEND Family Medicine
DX: M85.88 Other specified disorders of bone density and structure, other site (principal)
CPT/HCPCS: 77080

== ENCOUNTER → 2017-03-09 | Outpatient (CLI) | payer MEDICARE ==
[2016-12-06 16:42] VITALS: BP 126/69
--- NOTE | 2017-03-09 11:30 | KCIC ---
Indication: Granuloma, follow-up. Axial imaging through the chest was performed without contrast. One or more of the following individualized dose reduction techniques were utilized for this examination: 1. Automated exposure control 2. Adjustment of the mA and/or kV according to patient size 3. Use of iterative reconstruction technique Comparison is made with prior CT chest from 12/06/2016. No axillary lymphadenopathy is identified. The norma and mediastinum are limited in evaluation due to absence of intravenous contrast. No gross abnormality is seen. No pericardial or pleural fluid is identified. Parenchymal evaluation demonstrates some developing atelectasis in the right middle lobe and lingula since prior exam. A small subpleural nodule in the posterior lateral right lower lobe is stable at 7 mm. No new nodule is detected. The upper abdomen is unremarkable. IMPRESSION: 1. Stable right lower lobe pulmonary nodule. 2. Development of right middle lobe and lingular subsegmental atelectasis. Electronically signed by: Ravin Parks MD (03/09/2017 11:27 AM)
== END | disposition home or self-care (01) ==
LOC: KCIC CT 08:19
PROVIDERS: ATTEND Family Medicine
DX: R91.1 Solitary pulmonary nodule (principal); J98.11 Atelectasis
CPT/HCPCS: 71250

== ENCOUNTER → 2018-04-03 | Outpatient (CLI) | payer MEDICARE | END | disposition home or self-care (01) | LOC: KCIC MAMMO 09:07 | DX: Z12.31 Encounter for screening mammogram for malignant neoplasm of breast (principal); I10 Essential (primary) hypertension; E78.5 Hyperlipidemia, unspecified; E03.9 Hypothyroidism, unspecified; K21.9 Gastro-esophageal reflux disease without esophagitis | CPT/HCPCS: 77063; 77067 ==

== ENCOUNTER → 2019-01-07 | Outpatient (CLI) | payer MEDICARE ==
[2016-12-06 16:42] VITALS: BP 126/69
[~2019-01-07] MED LIST changes: +ASPI-630 PO; -ASPI81TA2 PO; -LOSA25TA4 PO; +LOSA25TA54 PO
--- NOTE | 2019-01-07 13:40 | KCIC ---
EXAM: Left tibia and fibula, 2 views. HISTORY: Pain. COMPARISON: None. FINDINGS: 2 views of the left tibia and fibula are obtained. There is no fracture, dislocation or subluxation. There is no lytic or sclerotic osseous lesion. There is no periosteal reaction. There may be slight bone demineralization. IMPRESSION: No acute osseous finding. Electronically signed by: Bette Grey MD (01/07/2019 1:36 PM) [email or web address]
== END | disposition home or self-care (01) ==
LOC: KCIC 09:52
PROVIDERS: ATTEND Family Medicine
DX: M79.662 Pain in left lower leg (principal)
CPT/HCPCS: 73590

== ENCOUNTER → 2019-04-09 | Outpatient (CLI) | payer MEDICARE ==
[2016-12-06 16:42] VITALS: BP 126/69
--- NOTE | 2019-04-09 13:25 | KCIC ---
Bilateral digital screening mammograms with 3-D tomosynthesis: Reason for examination: Routine screening. Comparison is made to previous studies dated 04/03/2018 and 01/31/2016. Bilateral mammograms in CC and oblique projections were obtained with 2-D imaging and 3-D tomosynthesis imaging on a Siemens Inspiration unit and reviewed on the workstation. Interpretation was made with the benefit of CAD. The skin and nipples show no abnormalities. No abnormal axillary lymph nodes are seen. The breast parenchyma shows scattered fatty and fibroglandular density. (Breast density: Category B.) There continues to be a small nodule with adjacent biopsy clip at the 12:30 B position of the left breast which is stable. There are no new dominant masses, suspicious calcifications or architectural distortion. Biopsy clip remains present on the left. Impression: No evidence of malignancy. Recommend routine screening. BI-RAD Category 2: Benign. "Our facility is accredited by the [employer] Mammography Program." This patient's information has been entered into a reminder system for the patient to be notified with the results of her examination and a target date for the next mammogram. Electronically signed by: Candice Ridley MD (04/09/2019 1:22 PM) [id number]
--- NOTE | 2019-04-09 15:42 | KCIC ---
Indication: Postmenopausal screening for osteoporosis. Follow-up study. COMPARISON: December 11, 2016 Bone Density: -BMD: (g/cm2) - AP Spine Total (L1-L4).......... 0.806. - Total left Hip................. 0.654. T-Score: - AP Spine Total (L1-L4)......... -2.2. - Total left Hip................. -2.4. Z-Score: - AP Spine Total (L1-L4).......... 0. - Total left Hip................. -0.7. World Health Organization criteria for BMD interpretation classify patients as Normal (T-score at or above -1.0), Osteopenic (T-score between -1.0 and -2.5), or Osteoporotic (T-score at or below -2.5). Impression: 1. AP Spine Total L1-L4--- osteopenia. Since the previous study, there has been a decrease in the BMD of 2.5%.. 2. Total left Hip--- osteopenia. Since the previous study, there has been a decrease in the BMD of approximately 1%. Electronically signed by: Richard Garcia MD (04/09/2019 3:39 PM) [email or web address]
== END | disposition home or self-care (01) ==
LOC: KCIC DEXA 10:19
PROVIDERS: ATTEND Family Medicine
DX: Z12.31 Encounter for screening mammogram for malignant neoplasm of breast (principal); Z13.820 Encounter for screening for osteoporosis; M85.88 Other specified disorders of bone density and structure, other site; N95.9 Unspecified menopausal and perimenopausal disorder
CPT/HCPCS: 77063; 77067; 77080

== ENCOUNTER → 2020-04-14 | Outpatient (CLI) | payer MEDICARE ==
[2016-12-06 16:42] VITALS: BP 126/69
[~2020-04-14] MED LIST changes: -CALC600T4 PO; +CALC600T5 PO; +OMEP40CA45 PO; -OMEP40CA5 PO
--- NOTE | 2020-04-14 16:53 | KCIC ---
Bilateral digital screening mammograms with 3-D tomosynthesis: Reason for examination: Routine screening. Comparison is made to previous studies dated back to 01/31/2016. Bilateral mammograms in CC and oblique projections were obtained with 2-D imaging and 3-D tomosynthesis imaging on a Siemens Inspiration unit and reviewed on the workstation. Interpretation was made with the benefit of CAD. The skin and nipples show no abnormalities. No abnormal axillary lymph nodes are seen. The breast parenchyma shows scattered fatty and fibroglandular density. (Breast density: Category B.) There continues to be some nodularity with adjacent biopsy clip at the 12:30 position of the left breast which is stable. There are no new dominant masses, suspicious calcifications or architectural distortion. Impression: No evidence of malignancy. Recommend routine screening. BI-RAD Category 2: Benign. "Our facility is accredited by the [employer] Mammography Program." This patient's information has been entered into a reminder system for the patient to be notified with the results of her examination and a target date for the next mammogram. Electronically signed by: Candice Ridley MD (04/14/2020 4:51 PM) [id number]
== END | disposition home or self-care (01) ==
LOC: KCIC MAMMO 13:41
PROVIDERS: ATTEND Family Medicine
DX: Z12.31 Encounter for screening mammogram for malignant neoplasm of breast (principal); N64.89 Other specified disorders of breast
CPT/HCPCS: 77063; 77067

== ENCOUNTER → 2020-04-15 | Outpatient (CLI) | payer MEDICARE ==
[2016-12-06 16:42] VITALS: BP 126/69
--- NOTE | 2020-04-15 13:40 | KCIC ---
EXAM: Dual energy x-ray absorptiometry (DEXA). HISTORY: Postmenopausal female presents for osteoporosis screening. COMPARISON: 04/09/2019. TECHNIQUE: Dual energy x-ray absorptiometry of the lumbar spine and left hip was performed. Calculation of bone mineral density based on standard deviations above or below the expected young adult normal value (T-score) was completed. FINDINGS: The average bone mineral density in the 1st through 4th lumbar vertebrae is 0.852 g/cmxcm, corresponding with a T-score of -1.8. There has been a 5.8% increase in density of the lumbar spine compared to the prior study. The average total bone mineral density in the left is 0.665 g/cmxcm, corresponding with a T-score of -2.3. There has been a 1.6% increase in density of the left hip compared to the prior study. IMPRESSION: Osteopenia. Note: Definitions established by the World Health Organization: 1. Normal: T-score is -1.0 or above. 2. Osteopenia: T-score is between -1.0 and -2.5 . 3. Osteoporosis: T-score is -2.5 or below. Electronically signed by: Bette Grey MD (04/15/2020 1:37 PM) [id number]
== END ==
LOC: KCIC DEXA 12:35
PROVIDERS: ATTEND Family Medicine
DX: M85.80 Other specified disorders of bone density and structure, unspecified site (principal); N95.8 Other specified menopausal and perimenopausal disorders
CPT/HCPCS: 77080

== ENCOUNTER → 2021-04-15 | Outpatient (CLI) | payer MEDICARE ==
[2016-12-06 16:42] VITALS: BP 126/69
[~2021-04-15] MED LIST changes: +AMLO-186 PO; -CALC600T5 PO; +CALC600T60 PO; -LACT1CAP29 PO; +LACT1CAP37 PO; +LOSA-73 PO; +OMEP20CA16 PO; -OMEP40CA45 PO; +OMEP40CA7 PO
--- NOTE | 2021-04-15 12:09 | KCIC ---
Bilateral digital screening mammograms with 3-D tomosynthesis: Reason for examination: Routine screening. Comparison is made to previous studies dated back to 12/11/2013. Bilateral mammograms in CC and oblique projections were obtained with 2-D imaging and 3-D tomosynthes is imaging on a Siemens Inspiration unit and reviewed on the workstation. Interpretation was made wit h the benefit of CAD. The skin and nipples show no abnormalities. No abnormal axillary lymph nodes are seen. The breast par enchyma shows scattered fatty and fibroglandular density. (Breast density: Category B.) There appears to be a small nodule developing in the right breast at the 9:00 position 7 cm from the nipple and me asuring 9.5 mm in size. Further evaluation with ultrasound is recommended. There continues to be a no dular density at the 12:00 B position of the left breast with adjacent biopsy clip which is unchanged . There are no other new dominant masses, suspicious calcifications or architectural distortion. Impression: 9.5 mm nodule at the 9:00 position of the right breast 7 cm from the nipple. Recommend further evalua tion with ultrasound. BI-RADS Category 0: Incomplete. Needs additional imaging evaluation. "Our facility is accredited by the [employer] Mammography [employer]." This patient's information has been entered into a reminder system for the patient to be notified wit h the results of her examination and a target date for the next mammogram. Electronically signed by: Candice Ridley MD (04/15/2021 12:07 PM) [email or web address]
== END ==
LOC: KCIC MAMMO 10:16
PROVIDERS: ATTEND Family Medicine
DX: Z12.31 Encounter for screening mammogram for malignant neoplasm of breast (principal); N63.41 Unspecified lump in right breast, subareolar
CPT/HCPCS: 77063; 77067

== ENCOUNTER → 2021-05-03 | Outpatient (CLI) | payer MEDICARE ==
[2016-12-06 16:42] VITALS: BP 126/69
[~2021-05-03] MED LIST changes: -AMLO-186 PO; -LOSA-73 PO; -OMEP20CA16 PO
--- NOTE | 2021-05-03 13:14 | KCIC ---
EXAM: Right breast sonogram. HISTORY: 75-year-old female presents for evaluation of nodularity within the right breast demonstrate d on a mammogram performed 04/15/2021. TECHNIQUE: Sonographic imaging of the right breast targeted to the site of mammographic nodularity in the right axilla was performed. COMPARISON: 04/15/2021. FINDINGS: There is an irregular hypoechoic nodule with indistinct margins and taller than wide morpho logy at the 9:00 position 6.5 cm from the nipple measuring 7 mm in maximum dimension. This correspond s with the mammographic finding of concern. No additional lesion is seen within the right breast. The re is no suspicious axillary lymph node. IMPRESSION: 1. Suspicious 7 mm nodule within the 9:00 position of the right breast 6.5 cm from the nipple. 2. BI-RADS Category 4: Suspicious abnormality. Sonographic guided biopsy of the aforementioned findin g at the 9:00 position of the right breast is recommended for definitive diagnosis. These findings and recommendations were discussed with the patient and communicated to the referring physician office medical policy specialist voice mail at 1310 hours on 05/03/2021. Electronically signed by: Bette Grey MD (05/03/2021 1:11 PM) [email or web address]
== END ==
LOC: KCIC US 12:33
PROVIDERS: ATTEND Family Medicine
DX: R92.8 Other abnormal and inconclusive findings on diagnostic imaging of breast (principal); N63.41 Unspecified lump in right breast, subareolar
CPT/HCPCS: 76641

== ENCOUNTER → 2021-05-25 | Outpatient (CLI) | payer MEDICARE ==
[2016-12-06 16:42] VITALS: BP 126/69
[~2021-05-25] MED LIST changes: +LIDOCAINE 1% Multi-Dose 20 ML VIAL. INJ ONE
--- NOTE | 2021-05-25 10:08 | RAD ---
CLINICAL INDICATION: Right Breast Biopsy for right breast mass 900 6.5 cm FN PRE-PROCEDURAL CONSULTATION: Details of the procedure and possible limitations and complications were discussed with the patient. After addressing her questions and concerns, written informed consent wa s obtained. A time out was then taken to verify patient's name and date of as well as site and laterality. PROCEDURE: The mass at the 9 o'clock position within the right breast was targeted under ultrasound. The skin of the right breast was cleansed and prepped in the typical sterile fashion. 7 cc of 1% lid ocaine was used for local anesthesia. A small skin incision was then made to permit passage of a 14 gauge spring activated biopsy device. 5 core specimens were obtained. A S-shaped clip was then deployed at the biopsy site. Hemostasis was achieved. The patient tolerated the procedure well with no immediate complications. Post-procedural digital mammographic imaging of the right breast demonstrate the S-shaped clip in mary carmen ropriate position. IMPRESSION: Successful ultrasound guided core needle biopsy of a mass at the 9 o'clock position withi n the right breast. Pathology is pending. Electronically signed by: Frantz Almanza MD (05/25/2021 10:05 AM) [email or web address]
--- NOTE | 2021-05-27 14:09 | PATHOLOGY ---
[facility] Accession Number: [id number] . 01 Material submitted: . breast - RIGHT BREAT TISSUE 9:00 6.5CMFN . 02 Diagnosis: Breast tissue, right breast mass 9:00, 6.5 cm from nipple, needle biopsies: - INVASIVE DUCTAL CARCINOMA WITH LOBULAR FEATURES, HISTOLOGIC GRADE II. SEE COMMENT. (JPM:stephanie/gulshan; 05/26/2021) MBR 05/27/2021 0911 Local . 02 Comment: Sections of the right breast mass 9:00 needle biopsy reveal an invasive mammary carcinoma. The tumor cells are present in cords and small nests which infiltrate a reactive desmoplastic stroma. The tumor cells are relatively small and have a high N/C ratio. Tumor cells possess rounded to irregular, mild to moderately pleomorphic hyperchromatic nuclei. Some of the tumor cells have a signet-ring cell appearance. The tumor shows no obvious tubule formation. Mitotic figures are infrequent. The invasive carcinoma measures up to 8 mm in greatest dimension on the glass slide. There is an occasional calcification which is associated with benign breast tissue. There is no lymphovascular tumor invasion. Uninvolved breast parenchyma shows focal stromal fibrosis and mild duct ectasia. A limited panel of immunoperoxidase stains is obtained on A2 and yields the following results: . AE1/AE3: Tumor cells positive E-cadherin: Tumor cells positive . The morphologic and immunophenotypic findings are supportive of the diagnosis of an invasive ductular carcinoma with lobular features, histologic grade II. Breast prognostic studies will be obtained on A2, the results of which will be reported separately. The case is also examined by Dr. Up, who concurs with the diagnosis. . (JPM:stephanie/gulshan; 05/26/2021) . . Special stains performed: AE1/AE3 and E-cadherin on A2. . 02 Electronically signed: . Jimmy Gonzalez MD, Pathologist NPI- [id number] . 01 Gross description: . The specimen is received in formalin, labeled "Loyda Yoder, right breast 900, 6.5 cm FN" and consists of 4 ewing-white fatty soft tissues (ranging in length from 1.1 cm to 1.5 cm and ranging in diameter from 0.1 cm to 0.2 cm). Also received free floating in the same container are multiple hemorrhagic to pale yellow irregular tissues aggregating 0.8 x 0.3 x 0.1 cm. The specimen is submitted entirely in A1-A5. The cold ischemic time is 1 minute. The specimen is placed in formalin at 0845 am on 05/25/2021.(COUSHATTA; 05/25/2021) DKA/DKA 05/26/2021 1403 Local . 02 Pathologist provided ICD-10: C50.911 . 02 CPT . 970504, [id number], [id number] Specimen Comment: A courtesy copy of this report has been sent to [phone] Specimen Comment: Report sent to / DR YOUNG Performed at: 01 [facility] [address], [place], [place] [id number] MD Clyde Luong MD Phone: [phone] Performed at: 02 [facility] [address], [place] [id number] MD Jimmy Gonzalez MD Phone: [phone]
== END | disposition home or self-care (01) ==
LOC: US 12:12
PROVIDERS: ATTEND Family Medicine
DX: N63.13 Unspecified lump in the right breast, lower outer quadrant (principal); R92.8 Other abnormal and inconclusive findings on diagnostic imaging of breast; I10 Essential (primary) hypertension; E78.00 Pure hypercholesterolemia, unspecified; E03.9 Hypothyroidism, unspecified; Z79.82 Long term (current) use of aspirin; Z72.89 Other problems related to lifestyle; Z98.890 Other specified postprocedural states; Z88.0 Allergy status to penicillin
CPT/HCPCS: 19083; 77065; A4648

== ENCOUNTER → 2021-06-02 | Outpatient (CLI) | payer MEDICARE ==
[2016-12-06 16:42] VITALS: BP 126/69
[~2021-06-02] MED LIST changes: +AMLO-186 PO; -LIDOCAINE 1% Multi-Dose 20 ML VIAL. INJ ONE; +LOSA-73 PO; +OMEP20CA16 PO
--- NOTE | 2021-06-02 10:55 | KCIC ---
EXAM: Chest, 2 views. HISTORY: Cough. COMPARISON: None. FINDINGS: 2 views of the chest are obtained. There is no infiltrate, pleural effusion or pneumothorax . The heart is normal in size. IMPRESSION: No acute pulmonary finding. Electronically signed by: Bette Grey MD (06/02/2021 10:52 AM) [email or web address]
== END ==
LOC: KCIC 10:32
PROVIDERS: ATTEND Family Medicine
DX: R05 Cough (principal)
CPT/HCPCS: 71046

== ENCOUNTER 2021-06-06 07:34 | Day surgery (SDC) | payer MEDICARE ==
[~2021-06-06] VITALS: Ht 166.4 cm; Wt 74.0 kg
[~2021-06-06 07:34] MED LIST changes: +BUPIVACAINE-EPI 0.5%-1:200000 MPF 30 ML VIAL. ONE; +HYDROmorphone 2 MG/ML VIAL IVP PRN; +ISOSULFAN BLUE 1% 50 MG/5 ML VIAL. SQ ONE; +IV RINGERS,LACTATED 1000ML 1,000 ML IV SCH; +LIDOCAINE 1% Multi-Dose 20 ML VIAL. INJ ONE; +MORPHINE SULFATE 2 MG/ML INJ. IVP PRN; +PROCHLORPERAZINE 10 MG/2 ML VIAL. IVP PRN; +fentaNYL PF VIAL 100 MCG/2 ML VIAL IVP PRN
[2021-06-06] MEDS ORDERED: fentaNYL PF VIAL 100 MCG/2 ML VIAL ONE ×2 (11:12→12:24)
[2021-06-06] MEDS ORDERED: LIDOCAINE 1% PF 5 ML VIAL. ONE (11:12)
[2021-06-06] MEDS ORDERED: ONDANSETRON PF 4 MG/2 ML VIAL. ONE (11:12)
[2021-06-06] MEDS ORDERED: PROPOFOL 10 MG/ML (20ML) VIAL. IV ONE (11:12)
[2021-06-06] MEDS ORDERED: DEXAMETHASONE SOD PHOS 4 MG/ML VIAL ONE (11:13)
--- NOTE | 2021-06-06 11:31 | RAD ---
CLINICAL INDICATION: Reason: Right Breast Needle Loc 900 6.5 CMFN / Spl. Instructions: / History: PRE-PROCEDURAL CONSULTATION: Details of the procedure and possible limitations and complications were discussed with the patient. After addressing her questions and concerns, written informed consent wa s obtained. A time out was then taken to verify patient's name and date of as well as site and laterality. PROCEDURE: Using a 5 cm localizing needle, the mass within the right breast was targeted under ultra sound via a lateral approach. The area of needle localization was cleansed and prepped in the typical sterile fashion. 3 cc of 1% lidocaine was used to anesthetize the skin and deeper soft tissues. A 5 cm Kopans needle was then advanced with the hook directly within the mass. The position of the needle was confirmed on orthogonal digital mammographic views and when optimal, the wire was deployed, the needle removed, and the wire secured in place. Hemostasis was achieved. Post-procedural digital mammographic views of the right breast demonstrate the biopsy clip adjacent to the hook of the wire. The patient tolerated the procedure well with no immediate complications. IMPRESSION: Successful ultrasound guided needle localization of a mass within the right breast at the site of biopsy proven malignancy. Specifically, the hook portion of the wire appears to be within th e mass. Correlation with final histopathology is recommended. Electronically signed by: Frantz Almanza MD (06/06/2021 11:29 AM) [email or web address]
--- NOTE | 2021-06-06 11:34 | RAD ---
CLINICAL HISTORY: Right breast cancer COMPARISON: None available. TECHNIQUE: Radiopharmaceutical Dose: 1 mCi Tc99m tilmanocept ([employer]) intradermal Findings/ impression: A single intradermal injection was performed at the upper outer right nipple. Electronically signed by: Frantz Almanza MD (06/06/2021 11:32 AM) [email or web address]
[2021-06-06] MEDS ORDERED: ePHEDrine PF IN SALINE 50 MG/10 ML SYRINGE. IV ONE (11:42)
[2021-06-06] MEDS ORDERED: GLYCOPYRROLATE 1 MG/5 ML VIAL. ONE (11:49)
[2021-06-06] MEDS ORDERED: KETOROLAC 30 MG/ML VIAL. ONE (12:55)
[2021-06-06] MEDS ORDERED: SEVOFLURANE > 120 MINUTES. IH ONE (13:27)
--- NOTE | 2021-06-06 13:44 | PDOC4 ---
Operative Note Operative Note Operative Note: Preoperative Diagnosis: Right breast cancer Postoperative Diagnosis: Same Procedure: Right lumpectomy with wire localization, right axillary sentinel node biopsy Surgeon: Deondre Machine Ceramic Coater: LAVERNE Faria Anesthesia: General EBL: 20 mL Specimen: Right axillary sentinel lymph nodes 1 through 5 to pathology, right lumpectomy short stitch superficial long stitch lateral, additional superior and inferior margins to pathology Drains: None Complications: None Indication: The patient is a 75-year-old female who is referred with a mass in the right breast noted on mammography. Further testing identified invasive ductal carcinoma. She was offered surgical treatment and is interested in breast conservation. The plan is to proceed with a right lumpectomy with needle localization and sentinel lymph node biopsy. The risks of surgery were discussed which include bleeding, infection, scar tissue, pain, anesthetic risk, potential need for additional surgery procedure. She understands and would like to proceed. Description: The patient initially went to radiology where she underwent injection of technetium sulfur colloid and wire localization of the right breast mass. She was then taken to the operating room and placed supine on the operating table. General anesthesia was performed. The right breast and axilla were prepped with ChloraPrep and draped in a standard surgical manner. Five mL of Lymphazurin were injected deep to the nipple areolar complex. Several minutes were allowed to elapse. An incision was made in the right axilla with a scalpel. Cautery dissection was carried down into the axillary tissues. There were initially two areas of marked increased nuclear uptake corresponding to lymph nodes. They were sequentially harvested and sent to pathology. There remained three additional areas of some nuclear uptake although less prominent than before. These other small lymph nodes were also removed and sent to p athology. There was no blue staining of any lymph nodes. The remaining axillary tissues appeared normal with no palpable lymphadenopathy. Frozen section of the five lymph nodes showed no evidence of metastasis. We then proceeded with the lumpectomy. An incision was made in the lateral aspect of the breast at the 9:00 location adjacent to the wire. Cautery dissection was carried down into the breast parenchyma. The wire was identified and delivered to the wound. A generous lumpectomy was then performed with cautery toward the direction of the wire tip. The specimen tissue was from the surrounding breast parenchyma with cautery. The dissection was carried all the way down to the pectoralis muscle. In a medial to lateral fashion the lumpect claus specimens taken off the chest wall. The superficial margin was marked with a short silk stitch and the lateral margin marked with a long silk stitch. The specimen was then sent to radiology and radiographs confirmed the presence of the mass and clip and distal portion of the wire. The specimen was then sent to pathology. Additional superior and inferior margins were taken from the lumpectomy cavity using cautery. They were sent separately as specimen. Hemostasis was good. The subcutaneous tissue of both locations were closed with 3-0 Vicryl. The skin was approximated with 4 Monocryl and infiltrated with half percent Marcaine with epinephrine. Sterile dressings were then applied. The patient tolerated the procedure well and was sent to the recovery room in stable condition. At the end the case all counts were correct. MEDHAT LAURA MD Jun 06, 2021 13:44
[2021-06-06] MEDS ORDERED: 0.9 % SODIUM CHLORIDE 10 ML DISP.SYRIN. IV PRN (13:45)
[2021-06-06] MEDS ORDERED: ONDANSETRON PF 4 MG/2 ML VIAL. IVP PRN (13:45)
[2021-06-06] MEDS ORDERED: IV 1/2 NORMAL SALINE 1,000 ML IV SCH (13:45)
[2021-06-06] MEDS ORDERED: HYDROcodone/APAP 5/325MG 1 TAB TABLET PO PRN ×2 (13:45)
[2021-06-06] MEDS ORDERED: NALOXONE 0.4 MG/ML VIAL. IV PRN (13:45)
[2021-06-06] MEDS ORDERED: HYDROmorphone 2 MG/ML VIAL IV PRN (13:45)
[2021-06-06] MEDS ORDERED: IV NORMAL SALINE 1000ML BAG 1,000 ML IV SCH (13:45)
--- NOTE | 2021-06-06 14:23 | RAD ---
EXAM: Surgical specimen DATE: 06/06/2021 1:01 PM INDICATION: Reason: SURGICAL SPECIMEN / Spl. Instructions: / History: . COMPARISON: No Prior FINDINGS/ IMPRESSION: Surgical specimen was submitted from the right breast. The wire, including the thick portion and the hook are included in the specimen. In addition the clip is also seen. Electronically signed by: Frantz Almanza MD (06/06/2021 2:20 PM) [email or web address]
--- NOTE | 2021-06-06 15:35 | DISCH ---
DISCHARGE INSTRUCTIONS Condition on Discharge Condition on Discharge: Stable Activity After Discharge Activity Instructions for Disc: Avoid exertion Diet after Discharge Diet after Discharge: Regular Wound Incision Care Wound/Incision Care: Other, see below (keep dressings clean and dry X 72 hours, may then remove and shower) Follow-Up Follow up with: Dr Laura in office in 1 week, call for appt [phone] MEDHAT LAURA MD Jun 06, 2021 15:35
[2021-06-06 16:15] VITALS: BP 162/71
[2021-06-06] MEDS ORDERED: CALCIUM CARBONATE 500 MG TABLET PO SCH (21:00)
[2021-06-07] MEDS ORDERED: PANTOPRAZOLE 40 MG TABLET.DR. PO SCH (07:30)
[2021-06-07] MEDS ORDERED: LOSARTAN POTASSIUM 50 MG TABLET. PO SCH (09:00)
--- NOTE | 2021-06-09 14:07 | PATHOLOGY ---
[facility] Accession Number: [id number] . 01 Material submitted: . PART A: axillary tail of breast - RIGHT AXILLARY SENTINEL NODE #1 - F.S.. Modifiers: right PART B: axillary tail of breast - RIGHT AXILLARY SENTINEL LYMPH NODE #2 - F.S.. Modifiers: right PART C: axillary tail of breast - RIGHT AXILLARY SENTINEL LYMPH NODE #3 - F.S.. Modifiers: right PART D: axillary tail of breast - RIGHT AXILLARY SENTINEL LYMPH NODE #4 - F.S.. Modifiers: right PART E: axillary tail of breast - RIGHT AXILLARY SENTINEL LYMPH NODE #5 - F.S.. Modifiers: right PART F: breast - RIGHT LUMPECTOMY SHORT STITCH SUPERFICIAL LONG STITCH LATERAL. Modifiers: right PART G: breast - SUPERIOR MARGIN. Modifiers: right, superior PART H: breast - INFERIOR MARGIN. Modifiers: inferior, right . 01 Clinical history: . BREAST CANCER RIGHT BREAST LUMPECTOMY . 02 Frozen section diagnosis: . INTRAOPERATIVE CONSULTATION WITH FROZEN SECTION DIAGNOSIS: (Mauro Gonzalez M.D.) . FSA1. Right axillary sentinel lymph node #1: - Negative for tumor. . The results are reported to Dr. Mendosa in the operating room. . FSB1. Right axillary sentinel lymph node #2: - Negative for tumor. . The results are reported to Dr. Mendosa in the operating room. . FSC1. Right axillary sentinel lymph node #3: - Negative for tumor. . The results are reported to Dr. Mendosa in the operating room. . FSD1. Right axillary sentinel lymph node #4: - Negative for tumor. . The results are reported to Dr. Mendosa in the operating room. . FSE1. Right axillary sentinel lymph node #5: - Negative for tumor. . The results are reported to Dr. Mendosa in the operating room. . Frozen sections performed at [facility], [address] [place] [address], [place] [address]. . FROZEN SECTION GROSS DESCRIPTION: A. The specimen is received fresh for intraoperative consultation and is designated "right axillary sentinel lymph node #1". This consists of an ovoid segment of yellow-red fatty appearing tissue, measuring up to 2.1 x 2.0 x 0.8 cm. Sectioning reveals a pink-yellow lymph node measuring approximately 1.6 cm in greatest dimension and showing no gross evidence of tumor replacement. This is submitted for frozen section as FSA1. The tissue remaining from frozen section is submitted for permanent sections as A1. . B. The specimen is received fresh for intraoperative consultation and is designated "right axillary sentinel lymph node #2". This consists a rounded segment of yellow fatty appearing tissue measuring up to 1.8 cm in diameter and 0.9 cm in thickness. Sectioning reveals a pink-yellow lymph node measuring up to 1.3 cm in greatest dimension. This is submitted for frozen section as FSB1. The tissue remaining from frozen section is submitted for permanent sections as B1. . C. The specimen is received fresh for intraoperative consultation and is designated "right axillary sentinel lymph node #3". This consists of a small segment of yellow-red fatty appearing tissue measuring up to 1.3 cm in greatest dimension. Sectioning reveals a pink-yellow lymph node measuring up to 0.7 cm in greatest dimension. This is submitted for frozen section as FSC1. The tissue remaining from frozen section is submitted for permanent sections as C1. . D. The specimen is received fresh for intraoperative consultation and is designated "right axillary sentinel lymph node #4". This consists of an ovoid shaped segment of yellow fatty appearing tissue measuring up to 2.0 x 1.5 x 0.8 cm in greatest dimension. Sectioning reveals a yellow-pink lymph node measuring up to 0.7 cm in greatest dimension. This is submitted for frozen section as FSD1. The tissue remaining from frozen section is submitted for permanent sections as D1. . E. The specimen is received fresh for intraoperative consultation and is designated "right axillary sentinel lymph node #5". This consists of a small pink-yellow lymph node measuring up to 0.6 cm in greatest dimension. This is submitted without sectioning for frozen section as FSE1. The tissue remaining from frozen section is submitted for permanent sections as E1. (JPM/db; 06/06/2021) GUILLERMO/DUKE . 02 Diagnosis: A. Lymph node, right axillary sentinel lymph node #1: - Negative for tumor. . B. Lymph node, right axillary sentinel lymph node #2: - Negative for tumor. . C. Lymph node, right axillary sentinel lymph node #3: - Negative for tumor. . D. Lymph node, right axillary sentinel lymph node #4: - Negative for tumor. . E. Lymph node, right axillary sentinel lymph node #5: - Negative for tumor. . F. Breast tissue, wire localized right breast lumpectomy: - Invasive ductal carcinoma with lobular features, histologic grade 2, measuring 9 mm in greatest dimension. - Invasive carcinoma is approximately 2 mm from the closest (inferior) margin of resection. - Previous biopsy site changes. - Single intramammary lymph node negative for tumor (0/1). - Fibrocystic changes. . G. Breast tissue, superior margin: - Stromal fibrosis, focal - negative for tumor. . H. Breast tissue, inferior margin: - Focal fibrocystic changes and focal reactive stromal fibrosis consistent with previous biopsy site changes - negative for tumor. (JPM:stephanie; 06/07/2021) . . Surgical Pathology Cancer Case Summary Protocol posting date: November 2019 . INVASIVE CARCINOMA OF THE BREAST: Resection . Procedure ___ Other (specify): Lumpectomy . Specimen Laterality ___ Right . Tumor Site ___ Clock position: 9 o'clock . Tumor Size ___ Greatest dimension of largest invasive focus >1 mm: 9 mm . Histologic Type ___ Invasive ductal carcinoma with lobular features . Histologic Grade (Alayna Histologic Score) Glandular (Acinar)/Tubular Differentiation ___ Score 3 (<10% of tumor area forming glandular/tubular structures) Nuclear Pleomorphism ___ Score 2 (cells larger than normal with open vesicular nuclei, visible nucleoli, and moderate variability in both size and shape) Mitotic Rate ___ Score 1 Overall Grade ___ Grade 2 (scores of 6 or 7) . + Tumor Focality + ___ Single focus of invasive carcinoma . Ductal Carcinoma In Situ (DCIS) ___ Not identified + Lobular Carcinoma In Situ (LCIS) + ___ Not identified . Margins Invasive Carcinoma Margins ___ Uninvolved by invasive carcinoma Distance from closest margin: 2 mm + Specify closest margin: Inferior margin DCIS Margins ___ Not applicable (no DCIS in specimen) . Regional Lymph Nodes ___ Uninvolved by tumor cells Total Number of Lymph Nodes Examined: 6 Number of [place] Nodes Examined: 5 . + Lymphovascular Invasion + ___ Not identified . Pathologic Stage Classification (pTNM, AJCC 8th Edition) Primary Tumor (pT) ___ pT1b: Tumor >5 mm but less than or equal to 10 mm in greatest dimension . Regional Lymph Nodes (pN) ___ pN0: No regional lymph node metastasis identified or ITCs only# . Additional Pathologic Findings ___ See diagnosis . Microcalcifications ___ Present in non-neoplastic tissue (JPM:abdelrahman; 06/09/2021) MBR 06/09/2021 1302 Local . 02 Comment: The sentinel lymph nodes are examined at multiple levels. In addition, immunoperoxidase stains for AE1/AE3 are obtained on each of the sentinel lymph nodes and yield the following results: . AE1/AE3 (A1): Negative for tumor AE1/AE3 (B1): Negative for tumor AE1/AE3 (C1): Negative for tumor AE1/AE3 (D1): Negative for tumor AE1/AE3 (E1): Negative for tumor . Thus, there are a total of 5 sentinel lymph nodes which are negative for tumor. There is also an intramammary lymph node present within the lumpectomy which is negative for tumor. . (JPM:tavern keeper; 06/08/2021) . 02 Electronically signed: . Jimmy Gonzalez MD, Pathologist NPI- [id number] . 01 Gross description: . A-E. PLEASE SEE GROSS DESCRIPTION UNDER FROZEN SECTION DIAGNOSIS. . F. Fixative: Formalin Labeled: Loyda Yoder R lumpectomy short stitch superficial, long stitch lateral Specimen received: Intact, with a needle localization wire in place. The specimen has been previously compressed and as a result the surgical margins may be distorted. Oriented: Short stitch superficial, long stitch lateral, however both sutures are located along the same edge (see photos) Weight: 66 g Dimensions: 7.8 cm superficial to deep, 6.3 cm medial to lateral, 1.9 cm superior to inferior . The specimen is inked as follows: superior-red inferior-blue superficial-green deep-black lateral-orange medial-yellow . Sectioned from: superficial to deep Number of slices: 13 Lesion: Mohr, pink and firm, 1.1 cm superficial to deep, 1.1 cm medial to lateral and 0.9 cm superior to inferior Lesion location: Slices 5-7 . Abutting the lesion is a biopsy cavity (0.4 x 0.4 x 0.3 cm) that contains multiple white, cylindrical, dense and friable rods. The biopsy cavity is located within slices 5 / 6. . Located 1.8 cm deep to the lesion is a pink, rubbery candidate lymph node (0.9 x 0.8 x 0.8 cm). . Lesion to margins: 0.6 cm to superior margin Suspicious for involving the inferior margin 1.7 cm to superficial 2.7 cm to deep 3.4 cm to lateral Suspicious for involving the medial margin . Biopsy clip: Not indentified Uninvolved breast parenchyma: fatty and homogenous with approximately 5% fibrous tissue Photographs are taken. . The specimen is submitted as follows: F1-F3: superficial margin, slice 1, represented F4: slice 5 to show biopsy cavity and lesion, represented F5-F7: slice 6, represented to show remainder of the biopsy cavity to include lesion, represented F8-F10: slice 7, represented to include the remainder of the lesion, with a contiguous bisected section submitted in F8-F9 F11:slice 7, lateral margin F12: slice 6, lateral margin F13-F15: slice 12 / slice 13 to include the entirety of the candidate lymph node F16-F17: deep margin, represented, slice 12 / slice 13 . Cold ischemic time: 19 minutes Total time in formalin: 10 hours . G. The specimen is received in formalin, labeled "Loyda Yoder, superior margin" and consists of a 3 g unoriented irregular portion of slightly concave fatty tissue (2.9 x 2.5 x 1.0 cm) with the concave side displaying cautery. The convex side is inked black and the concave side is inked orange. The specimen is serially sectioned to reveal fatty and focally fibrotic cut surfaces without a discrete mass, biopsy cavity or clip. The specimen is submitted sequentially, entirely in G1-G7. The cold ischemic time and the time placed in formalin is not provided. . H. The specimen is received in formalin, labeled "Yoder, Loyda, inferior margin" and consists of a previously fragmented into 2 parts, 3 g unoriented irregular portion of fatty tissue (3.4 x 3.1 x 1.3 cm in aggregate) with focally cauterized surfaces. Both tissues are inked black and serially sectioned to reveal fatty and focally hemorrhagic but otherwise unremarkable cut surfaces without a discrete mass, biopsy cavity or clip. The specimen is submitted sequentially, entirely in H1-H7. The cold ischemic time and the time placed in formalin is not provided. ([facility]; 06/06/2021) DKA/LBQ 06/09/2021 1241 Local . 02 Pathologist provided ICD-10: C50.911 . 02 CPT . 752534, 476336, 673182, 851511, 911802, 875038, 130908, 467466, 508414, 659078, 056369, 137877, 499214, [id number] Specimen Comment: A courtesy copy of this report has been sent to [phone] Specimen Comment: Report sent to Performed at: 01 [facility] [address], [place] [id number] MD Clyde Luong MD Phone: [phone] Performed at: 02 [facility] [address] [place], [place] [id number] MD Jimmy Gonzalez MD Phone: [phone]
== END 2021-06-06 16:30 | disposition home or self-care (01) ==
LOC: SURG 07:34
PROVIDERS: ATTEND Surgery
DX: C50.911 Malignant neoplasm of unspecified site of right female breast (principal); I10 Essential (primary) hypertension; E78.00 Pure hypercholesterolemia, unspecified; K21.9 Gastro-esophageal reflux disease without esophagitis; E03.9 Hypothyroidism, unspecified; Z90.710 Acquired absence of both cervix and uterus; Z98.890 Other specified postprocedural states
CPT/HCPCS: 19285; 19301; 38525; 38792; 76098; 77065; 88307; 88331; 88342; 96374; A4209; A4930; A6254; A6258; A9520; J1100; J1885; J1956; J2405; J2704; J3010; J3490; Q9968; C1819

== ENCOUNTER → 2021-09-14 | Outpatient (CLI) | payer MEDICARE ==
[~2021-09-14] MED LIST changes: -BUPIVACAINE-EPI 0.5%-1:200000 MPF 30 ML VIAL. ONE; -HYDROmorphone 2 MG/ML VIAL IVP PRN; -ISOSULFAN BLUE 1% 50 MG/5 ML VIAL. SQ ONE; -IV RINGERS,LACTATED 1000ML 1,000 ML IV SCH; -LIDOCAINE 1% Multi-Dose 20 ML VIAL. INJ ONE; -MORPHINE SULFATE 2 MG/ML INJ. IVP PRN; -PROCHLORPERAZINE 10 MG/2 ML VIAL. IVP PRN; -fentaNYL PF VIAL 100 MCG/2 ML VIAL IVP PRN
[2021-09-14 09:09] LABS: BASO % 1 % (0-3); EOS # 0.1 x10^3/uL (0.0-0.7); EOS % 2 % (0-3); HEMATOCRIT 39.8 % (36.0-47.0); HEMOGLOBIN 13.2 g/dL (12.0-15.5); LYMPH # 1.4 x10^3/uL (1.0-4.8); LYMPH % 28 % (24-48); MEAN CORPUSCULAR HEMOGLOBIN 30 pg (25-35); MEAN CORPUSCULAR HGB CONC 33 g/dL (31-37); MEAN CORPUSCULAR VOLUME 90 fL (79-100); MONO # 0.6 x10^3/uL (0.0-1.1); MONO % 11 % (0-9); NEUT # 2.9 x10^3/uL (1.8-7.7); NEUT % 57 % (31-73); PLATELET COUNT 290 x10^3/uL (140-400); RED BLOOD COUNT 4.41 x10^6/uL (3.50-5.40); RED CELL DISTRIBUTION WIDTH 14.6 % (11.5-14.5)
[2021-09-14 09:23] LABS: CREATININE 0.7 mg/dL (0.6-1.0); GFR 81.8; POTASSIUM 4.3 mmol/L (3.5-5.1)
[2021-09-14 09:32] LABS: ALBUMIN 3.6 g/dL (3.4-5.0); ALBUMIN/GLOBULIN RATIO 1.1 (1.0-1.7); TOTAL BILIRUBIN 0.3 mg/dL (0.2-1.0)
== END ==
LOC: ONCLAB 08:31
PROVIDERS: ATTEND Physician Assistant
DX: C50.111 Malignant neoplasm of central portion of right female breast (principal)
CPT/HCPCS: 36415; 80053; 83615; 85025

== ENCOUNTER → 2022-01-19 | Outpatient (CLI) | payer MEDICARE ==
--- NOTE | 2022-01-19 13:11 | KCIC ---
Bilateral diagnostic digital mammograms with 3-D tomosynthesis: Reason for examination: History of right breast cancer with lumpectomy and radiation therapy. Follow- up exam. Comparison is made to previous studies dated back to 04/03/2018. Bilateral mammograms in CC and oblique projections were obtained with 2-D imaging and 3-D tomosynthes is imaging on a Siemens Inspiration unit and reviewed on the workstation. Interpretation was made wit h the benefit of CAD. The skin and nipples show no abnormalities. No abnormal axillary lymph nodes are seen. The breast par enchyma shows scattered fatty and fibroglandular density. (Breast density: Category B.) There is a la rge 5.5 cm seroma at the 9:00 position posteriorly in the right breast correspond to previous lumpect claus. In the left breast, there appear to be a small nodule at the 12:30 position approximately 3.5 cm from the nipple. There is an biopsy clip present approximately 4.5 mm medial and 4 mm inferior to th is nodule and this may represent the nodule that was previously biopsied. There is also a small nodul ar density seen laterally in the left breast on cc view probably around the 2:00 position 5 cm from t he nipple. Ultrasound to follow the 2:00 position approximately 5 cm from the nipple. Further evaluat ion with ultrasound will follow. There are no other new dominant masses, suspicious calcifications or architectural distortion. Impression: Postlumpectomy seroma at the 9:00 C position of the right breast. 9 mm nodule at the 1:00 B position of the left breast with a biopsy clip located 4.5 mm medial and 4 mm inferior to the nodule. This probably represents a nodule previously biopsied and is relatively st able. New parenchymal asymmetry laterally in the left breast at approximately the 2:00 position 5 cm from t he nipple. Ultrasound to follow. BI-RAD Category 0: Incomplete. Needs additional imaging evaluation. Left breast ultrasound: Ultrasound examination of the left breast and axilla was performed. At the 2:00 position 5 cm from the nipple, there is a 8.9 x 1.6 mm patch of fibrocystic-type nodule w hich would correspond to the new area of mammographic concern. At the 12:00 position 4 cm from the ni pple, there is a 7.8 x 6 mm nodule present. This would correspond with the small nodule previously bi opsied in 2013. No other cystic or solid nodules are seen. No abnormal appearing lymph nodes are seen in the axilla. IMPRESSION: 8.9 mm fibrocystic type nodule at the 2:00 position 5 cm from the nipple corresponding to the new den sity seen mammographically. 7.8 mm nodule at the 12:00 position 4 cm from the nipple which probably corresponds to the nodule pre viously biopsied in 2013. Recommend 6 month follow-up with left breast ultrasound. BI-RADS Category 3: Probably Benign. "Our facility is accredited by the [employer] Mammography Program." This patient's information has been entered into a reminder system for the patient to be notified wit h the results of her examination and a target date for the next mammogram. Electronically signed by: Candice Ridley MD (01/19/2022 1:09 PM) [id number]
== END ==
LOC: KCIC MAMMO 10:37
PROVIDERS: ATTEND Internal Medicine Hematology & Oncology
DX: C50.111 Malignant neoplasm of central portion of right female breast (principal); N60.12 Diffuse cystic mastopathy of left breast; Z79.811 Long term (current) use of aromatase inhibitors
CPT/HCPCS: 76641; 77066; G0279; 77062